=== PATIENT | female | born 1965 | race Caucasian/White ===

== ENCOUNTER → 2017-06-16 | Outpatient (CLI) | payer OTHER ==
[~2017-06-16] MED LIST: ALPR0.254 PO; BENA10TA2 PO; BENA1TAB11 PO; DIPH25CA61 PO; ESTR1TAB15 PO; IBUP200T49 PO; MAGN71.5 PO; NIAC250T2 PO; OXYC5CAP2 PO; PARO30TA45 PO; TIZA4CAP PO; TRAM50TA2 PO; TRAZ50TA18 PO; focus factor PO
== END | disposition home or self-care (01) ==
LOC: CFH 14:29
PROVIDERS: ATTEND Family Medicine
DX: M19.041 Primary osteoarthritis, right hand (principal); J20.9 Acute bronchitis, unspecified
CPT/HCPCS: 71020

== ENCOUNTER → 2018-01-12 | Outpatient (CLI) | payer OTHER | END | disposition home or self-care (01) | LOC: CFH 13:54 | PROVIDERS: ATTEND Family Medicine | DX: Z12.31 Encounter for screening mammogram for malignant neoplasm of breast (principal) | CPT/HCPCS: 77067 ==

== ENCOUNTER → 2018-02-02 | Outpatient (CLI) | payer OTHER ==
[~2018-02-02] MED LIST changes: -BENA10TA2 PO; +BENA10TA4 PO; +TRAZ-136 PO; -TRAZ50TA18 PO
== END | disposition home or self-care (01) ==
LOC: CFH 14:50
PROVIDERS: ATTEND Family Medicine
DX: N64.89 Other specified disorders of breast (principal)
CPT/HCPCS: 77065

== ENCOUNTER → 2018-09-30 | Outpatient (CLI) | payer OTHER ==
[~2018-09-30] MED LIST changes: -TRAZ-136 PO; +TRAZ50TA66 PO
== END | disposition home or self-care (01) ==
LOC: CFH 12:57
PROVIDERS: ATTEND Family Medicine
DX: R92.2 Inconclusive mammogram (principal)
CPT/HCPCS: 76641; 77065; G0279

== ENCOUNTER 2019-08-18 09:25 | Outpatient (CLI) | payer OTHER ==
[~2019-08-18 09:25] MED LIST changes: -BENA10TA4 PO; +BENA10TA59 PO; -NIAC250T2 PO; +NIAC250T26 PO
== END 2019-08-18 23:59 | disposition home or self-care (01) ==
LOC: CFH 09:25
PROVIDERS: ATTEND Family Medicine
DX: Z02.9 Encounter for administrative examinations, unspecified (principal)

== ENCOUNTER 2020-01-31 11:12 | Outpatient (CLI) | payer OTHER | END 2020-01-31 23:59 | disposition home or self-care (01) | LOC: CFH 11:12 | PROVIDERS: ATTEND Family Medicine | DX: Z02.9 Encounter for administrative examinations, unspecified (principal) ==

== ENCOUNTER 2020-03-01 15:51 | Emergency (ER) | payer OTHER ==
[~2020-03-01] VITALS: Ht 152.4 cm; Wt 64.5 kg
--- NOTE | 2020-03-01 16:24 | NUR ---
TO ROOM FROM LOBBY AT THIS TIME.
[2020-03-01] MEDS ORDERED: MAALOX/HYOSCYAMINE/LIDOCAINE 45 ML BTL PO ONE (17:00)
[2020-03-01] MEDS ORDERED: DEXAMETHASONE 4 MG TABLET PO ONE (17:00)
[2020-03-01] MEDS ORDERED: MAALOX/HYOSCYAMINE/LIDOCAINE 45 ML BTL ONE (17:22)
[2020-03-01] MEDS ORDERED: DEXAMETHASONE 4 MG TABLET ONE (17:22)
--- NOTE | 2020-03-01 17:59 | NUR ---
PT STATES GREAT PAIN RELIEF AFTER MEDICATION ADMINISTRATION. PT OK FOR D/C PER ER PA-Luke. PT VERBALIZED UNDERSTANDING OF D/C INSTRUCTIONS, HAS ALL OWN BELONGINGS UPON D/C.
[2020-03-01 18:01] VITALS: BP 131/76
== END 2020-03-01 18:02 | disposition home or self-care (01) ==
LOC: ED 16:49
DX: K12.1 Other forms of stomatitis (principal); B34.9 Viral infection, unspecified; J02.9 Acute pharyngitis, unspecified
CPT/HCPCS: 87252; 99283

== ENCOUNTER → 2020-10-23 | Outpatient (CLI) | payer OTHER | END | disposition home or self-care (01) | LOC: CFH 10:23 | PROVIDERS: ATTEND Family Medicine | DX: R92.2 Inconclusive mammogram (principal) | CPT/HCPCS: 77062; 77066; G0279 ==

== ENCOUNTER 2020-12-05 13:05 | Outpatient (CLI) | payer OTHER ==
[2020-12-05] MEDS ORDERED: OMNIPAQUE 350 MG/ML, 100ML BOTTLE ONE (14:09)
== END 2020-12-05 23:59 | disposition home or self-care (01) ==
LOC: CFH 13:05
PROVIDERS: ATTEND Family Medicine
DX: K63.89 Other specified diseases of intestine (principal); R10.32 Left lower quadrant pain
CPT/HCPCS: 74177; 82565; Q9967